=== PATIENT | male | born 1980 | race Caucasian/White ===

== ENCOUNTER 2019-07-14 20:14 | Emergency (ER) | payer SELFPAY ==
[2019-07-14 20:24] VITALS: BP 120/64; PULSE 83; TEMP 98.4; BMI 33.4
[2019-07-14] MEDS ORDERED: DEXAMETHASONE LIQUID 0.5 MG/5 ML PO ONE (21:02)
[2019-07-14] MEDS ORDERED: ALBUTEROL SO4 2.5/IPRATROPIUM 0.5 INH SOL 3 ML VIAL.NEB. NEB ONE (21:03)
[2019-07-14] MEDS ORDERED: DEXAMETHASONE SOD PHOSPHATE 10 MG/1 ML VIAL ONE (21:03)
--- NOTE | 2019-07-14 21:05 | PDOC ---
History of Present Illness - General Chief Complaint: Cold Symptoms Stated Complaint: COLD SYMPTOMS Time Seen by Provider: 07/14/19 20:55 - History of Present Illness Initial Comments: 07/14/19 21:03 38 y/o M with PMH of gastritis and ulcers presents for evaluation of cough with associated WARD x7 days also has chills. Past History - Past Medical History Allergies/Adverse Reactions: Allergies Allergy/AdvReac Type Severity Reaction Status Date / Time No Known Allergies Allergy Verified 06/16/15 20:01 Home Medications: Ambulatory Orders Albuterol 0.083% Nebulizer Kenzie [Ventolin 0.083% Nebulizer Soln -] 1 neb NEB Q4H PRN #20 vial 07/14/19 Albuterol Sulfate Inhaler - [Ventolin HFA Inhaler -] 1 - 2 inh PO Q4H #1 inhaler 07/14/19 Amox-Tr/K Cl [Augmentin - 875Mg Tablet] 1 tab PO BID #20 tablet 07/14/19 Guaifenesin Dm [Mucinex Dm -] 1 tab PO BID #60 tab.er.12h 07/14/19 L. Rhamnosus GG/Inulin [Culturelle Capsule] 1 each PO DAILY #30 cap.sprink 07/14 Nebulizer and Compressor [[place] Choice Nebulizer] 1 each ASDIR #1 each 07/14 - Immunization History Immunization Up to Date: Yes - Psycho Social/Smoking Cessation Hx Smoking History: Current every day smoker Number of Cigarettes Smoked Daily: 10 Information on smoking cessation initiated: No Hx Alcohol Use: Yes (socially) Drug/Substance Use Hx: Yes (marijuan) Substance Use Type: Alcohol Review of Systems - Review of Systems Constitutional: Yes: Chills, Malaise Respiratory: Yes: Cough *Physical Exam - Vital Signs Last Vital Signs Temp Pulse Resp BP Pulse Ox 98.4 F 83 19 120/64 95 07/14/19 20:18 07/14/19 20:18 07/14/19 20:18 07/14/19 20:18 07/14/19 20:18 - Physical Exam Comments: 07/14/19 21:05 HEAD: NC/AT EYES: Conjuntiva clear Ears: Canals and TM's normal NOSE: No d/c THROAT: Moist mucous membrances, oral pharanx clear, uvula midline NECK: Supple without adenopathy CARDIAC: S1 S2 LUNGS: B basilar ronchi and expiratory wheezing at the bases ABDOMEN: Soft NT ND MS: Full ROM in all joints without edema NEUROLOGIC: No gross sensory or motor deficits, NVID SKIN: Normal color and temperature no lesions or rashes ED Treatment Course - RADIOLOGY Radiology Studies Ordered: Category Date Time Status CHEST PA & LAT [RAD] Stat Radiology 07/14/19 21:02 Ordered Medical Decision Making - Medical Decision Making 07/14/19 21:17 cxr clear without infiltrate will treat for bronchitis. Discharge - Discharge Information Problems reviewed: Yes Clinical Impression/Diagnosis: Bronchitis Condition: Stable Disposition: HOME - Admission No - Additional Discharge Information Prescriptions: Albuterol 0.083% Nebulizer Kenzie [Ventolin 0.083% Nebulizer Soln -] 1 neb NEB Q4H PRN #20 vial PRN Reason: Wheezing Albuterol Sulfate Inhaler - [Ventolin HFA Inhaler -] 1 - 2 inh PO Q4H #1 inhaler Amox-Tr/K Cl [Augmentin - 875Mg Tablet] 1 tab PO BID #20 tablet Guaifenesin Dm [Mucinex Dm -] 1 tab PO BID #60 tab.er.12h L. Rhamnosus GG/Inulin [Culturelle Capsule] 1 each PO DAILY #30 cap.sprink Nebulizer and Compressor [[place] Choice Nebulizer] 1 each [facility] ASDIR #1 each - Follow up/Referral Referrals: ON STAFF,NOT [Primary Care Provider] - - Patient Discharge Instructions Patient Printed Discharge Instructions: DI for Acute Bronchitis Additional Instructions: Please use the inhaler as directed and take the antibiotics as directed and finish the entire course. Return to the emergency room should symptoms worsen and please, without fail follow up with your primary care physician in 1-2 days for further evaluation and treatment options. - Post Discharge Activity
[2019-07-14] MEDS: ALBUTEROL SO4 2.5/IPRATROPIUM 0.5 INH SOL 3 ML VIAL.NEB. NEB SCH ×4 (21:27→22:00)
== END 2019-07-14 22:32 | disposition home or self-care (01) ==
LOC: JERFT 20:14 → JER 20:14 → JERFT 22:32
PROC: 3E0F7GC Introduction of Other Therapeutic Substance into Respiratory Tract, Via Natural or Artificial Opening (ICD-10-PCS; principal; 2019-07-14)
DX: J40 Bronchitis, not specified as acute or chronic (principal); F17.210 Nicotine dependence, cigarettes, uncomplicated
CPT/HCPCS: 71046-TC-FY; 99281-25

== ENCOUNTER 2024-12-03 16:43 | Emergency (ER) | payer OTHER ==
[2024-12-03 16:52] VITALS: BP 109/70; PULSE 63; RESP 18; TEMP 98.4; BMI 38.0
[2024-12-03] MEDS ORDERED: ALBUTEROL SO4 2.5/IPRATROPIUM 0.5 INH SOL 3 ML VIAL.NEB. NEB SCH (17:45)
[2024-12-03] MEDS ORDERED: ALBUTEROL SO4 2.5/IPRATROPIUM 0.5 INH SOL 3 ML VIAL.NEB. NEB ONE (18:59)
[2024-12-03] MEDS ORDERED: DEXAMETHASONE 4 MG TABLET (FP) ONE (18:59)
[2024-12-03] MEDS ORDERED: ACETAMINOPHEN INJECTION 100 ML ONE (19:00)
[2024-12-03] MEDS: ACETAMINOPHEN 1000 MG/100 ML BAG IVPB ONE (19:09)
[2024-12-03] MEDS: DEXAMETHASONE 4 MG TABLET (FP) PO ONE (19:09)
[2024-12-03] MEDS: ALBUTEROL SO4 2.5/IPRATROPIUM 0.5 INH SOL 3 ML VIAL.NEB. NEB SCH (19:09)
[2024-12-03 19:40] LABS: BASO % 0.4 % (0-2.0); HEMOGLOBIN 15.8 GM/dL (11.7-16.9); LYMPH % 36.6 % (8-40); MCH 32.3 pg (25.7-33.7); MCHC 34.4 g/dl (32.0-35.9); MEAN CELL VOLUME 93.8 fl (80-96); MEAN PLT VOLUME 7.4 fl (7.5-11.1); MONO % 5.5 % (3.8-10.2); NEUT % 55.5 % (42.8-82.8); PLATELET COUNT 287 10^3/uL (134-434); RDW 13.8 % (11.9-15.9); WHITE BLOOD COUNT 9.5 K/mm3 (4.0-10.0)
[2024-12-03 19:48] LABS: INR 1.01 (0.83-1.09); PROTHROMBIN TIME (PATIENT) 11.1 SEC (9.7-13.0)
[2024-12-03 19:51] LABS: ACTIVATED PTT 30.9 SECONDS (25.2-36.5)
[2024-12-03 20:05] LABS: POTASSIUM 3.9 mmol/L (3.5-5.1)
[2024-12-03 20:08] LABS: CALCIUM 9.4 mg/dL (8.5-10.1)
[2024-12-03 20:09] LABS: ALBUMIN 4.1 g/dl (3.4-5.0)
[2024-12-03 21:03] LABS: BLOOD UREA NITROGEN 11.5 mg/dL (7-18)
[2024-12-03 21:07] LABS: TOT PROT 7.9 g/dl (6.4-8.2)
[2024-12-03 21:08] LABS: BILIRUBIN,TOTAL 0.4 mg/dL (0.2-1)
== END 2024-12-03 20:53 | disposition left against medical advice (07) ==
LOC: JER 16:43
PROC: 3E033NZ Introduction of Analgesics, Hypnotics, Sedatives into Peripheral Vein, Percutaneous Approach (ICD-10-PCS; principal; 2024-12-03)
PROC: 3E0F7GC Introduction of Other Therapeutic Substance into Respiratory Tract, Via Natural or Artificial Opening (ICD-10-PCS; 2024-12-03)
DX: J45.909 Unspecified asthma, uncomplicated (principal); R07.81 Pleurodynia; R06.02 Shortness of breath; R09.81 Nasal congestion; Z20.822 Contact with and (suspected) exposure to COVID-19
CPT/HCPCS: 0241U-QW; 36415; 71045-TC-FY; 80053; 84484; 85025; 85610; 85730; 93005; 93010; 99285-25; J0131